=== PATIENT | female | born 1970 | race African-American/Black ===

== ENCOUNTER 2019-01-27 03:51 | Inpatient (IN) | payer OTHER ==
[~2019-01-27] VITALS: Ht 162.6 cm; Wt 97.5 kg
[2019-01-27 04:00] VITALS: Ht 162.6 cm; Wt 97.5 kg
--- NOTE | 2019-01-27 04:16 | NUR ---
PT. IN ED WITH C/O LEFT ARM PAIN SINCE 1AM THIS MORNING, STATES SHE IS NOW EXPERIENCING LEFT SIDE CHEST PRESSURE, FEELING DIZZY, AND NUMBNESS TO LEFT ARM WHEN SHE ARRIVED TO ED. STATES THE PAIN IS 10/10 TO ARM AND CHEST. HAS NEVER EXPERIENCED THESE SYMPTOMS IN THE PAST. PT. AAOX4, TALKING AND RESPONDING APPROPRIATELY, BREATHING E/U. PLACED ON FULL VOCATIONAL REHABILITATION ADMINISTRATOR. DR. LONGO AT BEDSIDE FOR MSE. WILL CONTINUE TO MONITOR.
[2019-01-27 04:34] LABS: BASOPHIL % 0.9 % (0-2); PLATELET COUNT 203 x10^3mcL (130-400); RED CELL DISTRIBUTION WIDTH 14.5 % (11.5-14.5)
[2019-01-27 04:45] LABS: CALCIUM 8.3 mg/dL (8.5-10.1); CARBON DIOXIDE 27.2 mmol/L (21-32); CREATININE SERUM 1.1 mg/dL (0.6-1.0); POTASSIUM SERUM 4.4 mmol/L (3.5-5.1)
[2019-01-27 04:49] LABS: BILIRUBIN TOTAL 0.2 mg/dL (0.20-1.00); TOTAL PROTEIN, SERUM 6.8 g/dL (6.4-8.2)
--- NOTE | 2019-01-27 05:01 | NUR ---
ULTRASOUND AT BEDSIDE
[2019-01-27 05:06] LABS: ALBUMIN 3.2 g/dL (3.4-5.0)
--- NOTE | 2019-01-27 06:09 | NUR ---
RECEIVED REPORT FROM JUDY ROMERO. ALL QUESTIONS ADDRESSED.
--- NOTE | 2019-01-27 06:10 | NUR ---
REPORT GIVEN TO MANPREET ROMERO, ALL QUESTIONS AND CONCERNS WERE ADDRESSED
[2019-01-27 06:40] VITALS: BP 139/89
--- NOTE | 2019-01-27 06:40 | NUR ---
PT ARRIVED TO [facility] ACCOMPANIED BY MANJINDER YAÑEZ, RN, AND PT'S . A&OX4. FOLLOWS COMMANDS. RESPONDS TO VERBAL, TACTILE, AND PAINFUL STIMULUS. BREATHING E/U. NO SIGNS OF RESP DISTRESS NOTED. L SIDE CP AND PRESSURE STATED - 04/03. PT IS AMBULATORY, JOINTS INTACT. NO CONTRACTURES NOTED. SKIN INTACT. NO OPEN WOUNDS NOTED. ABD IS SOFT AND ROUNDED. DENIES N/V OR ABD PAIN.
--- NOTE | 2019-01-27 07:10 | NUR ---
RECEIVED PATIENT FROM MANAGER CLINICAL RESEARCH NURSE. PATIENT IS RESTING WITH BOTH EYES CLOSED, AROUSABLE. TELE#[id number], SR, HR 75. PATIENT DENIES PAIN AT THIS TIME. IV NOTED TO RAC, NO S/S ERYTHEMA AT SITE. CALL LIGHT WITHIN EASY REACH. WILL CONTINUE PLAN OF CARE.
[2019-01-27 07:11] LABS: CHOLESTEROL/HDL RATIO 2.1
[2019-01-27 07:55] VITALS: BP 133/95
[2019-01-27 10:18] VITALS: BP 139/89
[2019-01-27] MEDS ORDERED: ATENOLOL50 MG PO (10:30)
[2019-01-27] MEDS ORDERED: LOSARTAN POTASS50 M1 PO (10:30)
[2019-01-27] MEDS ORDERED: LIPI20 PO (10:31)
[2019-01-27] MEDS ORDERED: LEVOTHYROXINE0.05 M2 PO (10:31)
[2019-01-27] MEDS ORDERED: LYRICA150 M1 PO (10:32)
[2019-01-27] MEDS ORDERED: NOR10T PO (10:32)
[2019-01-27 12:19] VITALS: BP 117/81
--- NOTE | 2019-01-27 13:11 | NUR ---
ECHOCARDIOGRAM PENDING-HAVING LUNCH
[2019-01-27 14:09] LABS: microscopic required? NO
--- NOTE | 2019-01-27 14:24 | NUR ---
DR REYES AT BEDSIDE. PATIENT TO BE SCHEDULED FOR ELISABETH SCAN TOMORROW 01/28 AT 1300.
[2019-01-27 14:40] LABS: urine erythrocyte NEGATIVE (NEGATIVE)
[2019-01-27 14:51] LABS: AMPHETAMINE QUAL UR NONE DETECTED (See below)
[2019-01-27 16:50] VITALS: BP 121/87
--- NOTE | 2019-01-27 18:24 | NUR ---
PATIENT RESTING IN BED WITH BOTH EYES CLOSED IN NO ACUTE DISTRESS. CALL LIGHT WITHIN EASY REACH. WILL ENDORSE PATIENT CARE TO TELEPHONE INSTALLER NURSE.
--- NOTE | 2019-01-27 19:35 | NUR ---
RECEIVED PT FROPM PREVIOUS SHIFT. PT DROWSY, EASILY AWAKENED, ORIENTED X4. DENIES CHEST PAIN/PRESSURE AT THIS TIME. DENIES SOB ON RA. IV PATENT AND SALINE LOCKED TO RAC. CALL LIGHT WITHIN REACH, BEDIN LOW POSITION. AT BEDSIDE. WILL CONTINUE TO MONITOR.
[2019-01-27 20:49] VITALS: BP 124/79
--- NOTE | 2019-01-28 00:48 | NUR ---
PT RESTING IN NO ACUTE DISTRESS. RR EVEN AND UNLABORED. CALL LIGHT WITHIN REACH, BED IN LOW POSITION. WILL CONTINUE TO MONITOR.
[2019-01-28 05:31] VITALS: BP 98/64
[2019-01-28 06:52] LABS: CALCIUM 8.5 mg/dL (8.5-10.1); CARBON DIOXIDE 31.1 mmol/L (21-32); CHLORIDE SERUM 104 mmol/L (98-107); GFR1 > 60 mL/min; GLUCOSE SERUM 91 mg/dL (74-106); POTASSIUM SERUM 5.4 mmol/L (3.5-5.1); SODIUM SERUM 139 mmol/L (136-145)
[2019-01-28 06:57] LABS: BASOPHIL % 0.6 % (0-2); PLATELET COUNT 209 x10^3mcL (130-400)
--- NOTE | 2019-01-28 07:20 | NUR ---
RECEIVED PT IN BED. ASSESSED AND DOCUMENTED. DENIES PAIN THIS TIME. STABLE. SAFTEY PRECAUTIONS ARE IN PLACE. WILL MONITOR.
[2019-01-28 07:26] LABS: RED CELL DISTRIBUTION WIDTH 14.7 % (11.5-14.5)
[2019-01-28 08:50] VITALS: BP 103/64
[2019-01-28 09:45] VITALS: BP 103/64
--- NOTE | 2019-01-28 12:30 | NUR ---
NUCLEAR STAFF TOOK PT TO RADIOLOGY FOR LEXISCAN VIA W/C.
[2019-01-28 13:29] VITALS: BP 107/71
--- NOTE | 2019-01-28 13:49 | NUR ---
LEXISCAN STRESS DONE
--- NOTE | 2019-01-28 14:41 | NUR ---
RECEIVED PT FROM [employer] AFTER LEXISCAN. PT C/O LEFT SIDE RIB PAIN,04/03. MORPHIN IV 2MG GIVEN ORDERED. AWARE ABOUT PT PAIN.
--- NOTE | 2019-01-28 15:11 | NUR ---
PT DENIES ANY PAIN. STABLE.
[2019-01-28 17:15] VITALS: BP 111/76
--- NOTE | 2019-01-28 18:42 | NUR ---
DR SOSA MADE AWARE THAT STRESS TEST SHOWS NO MYOCARDIAL ISCHEMIA OR INFARCTION. PER DR SOSA PATIENT TO BE DC HOME TODAY AND F/U WITH PCP FOR ARRANGEMENTS FOR OUTPATIENT GI. ATTENDING NURSE ISAAC MADE AWARE.
--- NOTE | 2019-01-28 19:00 | NUR ---
PT IS STABLE. DENIES CHEST PAIN AND DENIES ANY PAIN. SHE WILL DC HOME SOON. REPORT GIVEN TO NIGHT NURSE.
[2019-01-28 19:46] VITALS: BP 111/76
--- NOTE | 2019-01-28 20:30 | NUR ---
DISCHARGED IN STABLE CONDITION AFTER PATIENT SIGN AND GIVEN DISCHARGE INSTRUCTION. IV TO RAC DISCONTINUED AND TAPED. TO FOLLOW UP WITH PRIMARY DOCTOR. WENT HOME VIA [facility] ACCOMPANIED BY TRINO POSEY AND PATIENT .
== END 2019-01-28 20:38 | disposition home or self-care (01) | DRG 303 ==
LOC: ED 03:51 → DU 05:44
PROVIDERS: Emergency Medicine; ADMIT Internal Medicine
DX: I25.10 Atherosclerotic heart disease of native coronary artery without angina pectoris (principal); I10 Essential (primary) hypertension; M54.9 Dorsalgia, unspecified; J45.909 Unspecified asthma, uncomplicated; Z79.82 Long term (current) use of aspirin; Z68.36 Body mass index [BMI] 36.0-36.9, adult; Z87.891 Personal history of nicotine dependence; Z86.73 Personal history of transient ischemic attack (TIA), and cerebral infarction without residual deficits
CPT/HCPCS: A9500; J2270; J2785; Q0092